=== PATIENT | female | born 1995 | race Caucasian/White ===

== ENCOUNTER 2017-04-17 13:38 | Emergency (ER) | payer MEDICAID ==
[~2017-04-17] VITALS: Ht 167.6 cm; Wt 57.0 kg
[2017-04-17 14:26] VITALS: BP 128/79
== END 2017-04-17 15:21 | disposition home or self-care (01) ==
LOC: ER 14:40
DX: N64.52 Nipple discharge (principal); R11.0 Nausea; R50.9 Fever, unspecified; R51 Headache
CPT/HCPCS: 81025; 99282